=== PATIENT | female | born 1975 | race Caucasian/White ===

== ENCOUNTER 2017-07-29 13:07 | Emergency (ER) | payer BC, OTHER, SELFPAY ==
[2017-07-29] MEDS ORDERED: Benzonatate 100 MG CAP ONE (13:27)
--- NOTE | 2017-07-29 13:45 | RAD ---
TWO VIEW CHEST: History: Cough. FINDINGS: The lung grace are clear. No infiltrate. Heart and mediastinum are unremarkable. Vascular markings n ormal. Osseous structures unremarkable. IMPRESSION: No acute abnormality. POS: [facility]
== END 2017-07-29 14:30 | disposition home or self-care (01) ==
LOC: SCSER 13:07
DX: J06.9 Acute upper respiratory infection, unspecified (principal); F41.9 Anxiety disorder, unspecified
CPT/HCPCS: 71046